=== PATIENT | male | born 1980 | race African-American/Black ===

== ENCOUNTER 2019-04-16 16:48 | Emergency (ER) | payer BC ==
[~2019-04-16] VITALS: Ht 177.8 cm; Wt 86.2 kg
[2019-04-16 16:53] VITALS: BP 147/80
--- NOTE | 2019-04-16 16:53 | NUR ---
ED Nurse Note: PT BROUGHT IN BY 61 FROM WORK DUE TO ALOC. PT'S BOSS IS AT THE BED SIDE AND REPORTS THAT PT WAS FOUND SITTING ON HIS DESK AND HEAD LAID BACK AND NOT RESPONDING WELL TO QUESTIONS ASKED TO HIM. PT CAME IN AAO X4, FOLLOWS COMMANDS WITH NON LABORED BREATHING. NOTED PT IS DROWSY AND WITH WEAKNESS. BS CHECK 94.
--- NOTE | 2019-04-16 16:59 | Emergency Room Report ---
History of Present Illness General Chief Complaint: Altered Mental Status Source: Patient Present Illness [facility] Disclaimer: Please note that this report is being documented using [employer] technology. This can lead to erroneous entry secondary to incorrect interpretation by the dictating instrument. HPI: 39-year-old male presents for evaluation of altered mental status/syncope. The patient was reportedly his usual state of health but was difficult to arouse while at work. His boss is with him and states that while his shift ended at 4:00 they went over and found him sleeping in his chair. He was difficult to arouse and was unresponsive to verbal and physical stimuli. He had sonorous respirations but no one reported any seizure-like activity, trauma or abnormal behavior prior to his discovery. EMS was called and patient was put on the ground. They found him arousable though confused. He has difficulty remembering his new address but cannot remember his old one. He denies any complaints of headache, visual changes, chest pain, palpitation, shortness of breath, cough, vomiting, diarrhea, drug use, alcohol use or any other changes in his health recently. He cannot recall whether or not he ate breakfast this morning. Does not have diabetes or any other medical history. Does not take any medications. Denies any prior history of similar events. PMH: Denies PSH: Denies Allergies: Denies Social Hx: Denies tobacco use, denies drug use. Occasional alcohol use Allergies: Coded Allergies: No Known Allergies (Unverified , 04/16/19) Nursing Documentation-PMH Past Medical History: No Stated History Review of Systems All Other Systems: negative except mentioned in HPI Physical Exam Vital Signs Date Time Temp Pulse Resp B/P (MAP) Pulse Ox O2 Delivery O2 Flow Rate FiO2 04/16/19 16:43 97.5 72 16 142/84 (103) 99 Room Air General: Awake and alert, no acute distress, somnolent but arousable to voice HEENT: NC/AT. There are no scalp or face hematomas, lacerations or abrasions. EOMI. visual shipley are full. No nystagmus. Pupils are 2 mm and faintly reactive bilaterally. Moist mucous membranes. Neck: Supple, trachea midline, no stiffness/rigidity Chest Wall: No tenderness, no deformity Cardiovascular: RRR. S1 and S2 normal. No murmur appreciated Resp: Normal work of breathing. No cough, wheezing or crackles appreciated Abdomen: Abdomen is soft, nondistended. Nontender Skin: Intact. No abrasions, laceration or rash over the exposed skin MSK: Normal tone and bulk. Moving all extremities. No obvious deformity. Neuro: Awake and alert. Mentating appropriately. Back/Spine: No midline tenderness in the cervical spine. Medical Decision Making Diagnostic Impression: Primary Impression: Altered level of consciousness ER Course 39-year-old male presents for evaluation of he was found difficult to arouse at his desk approximately 1 hour ago. He is now awake, alert and answering questions appropriately and has no complaints. He has some difficulty with short-term memory recall however appears to be improving. There is no seizure- like activity reported and the patient denies a history of seizures. Differential includes was not limited to infection, substance abuse, intoxication, seizure activity, electrolyte abnormality, arrhythmia. We will start broad metabolic, infectious, toxicologic and cardiac work-up. At this point, I do not see any evidence of trauma and there is no reported seizure- like activity while the patient was monitored. Do not believe he requires emergent head CT however if there is no other explanation for his altered mental status will order one after evaluation of labs. Laboratory Tests Test 04/16/19 17:15 04/16/19 17:30 White Blood Count 5.5 K/UL (4.8-10.8) Red Blood Count 4.49 M/UL (4.70-6.10) L Hemoglobin 12.2 G/DL (14.2-18.0) L Hematocrit 36.1 % (42.0-52.0) L Mean Corpuscular Volume 80 FL (80-99) Mean Corpuscular Hemoglobin 27.2 PG (27.0-31.0) Mean Corpuscular Hemoglobin Concent 33.9 G/DL (32.0-36.0) Red Cell Distribution Width 14.5 % (11.6-14.8) Platelet Count 236 K/UL (150-450) Mean Platelet Volume 6.3 FL (6.5-10.1) L Neutrophils (%) (Auto) % (45.0-75.0) Lymphocytes (%) (Auto) % (20.0-45.0) Monocytes (%) (Auto) % (1.0-10.0) Eosinophils (%) (Auto) % (0.0-3.0) Basophils (%) (Auto) % (0.0-2.0) Neutrophils % (Manual) Pending Lymphocytes % (Manual) Pending Platelet Estimate Pending Platelet Morphology Pending Sodium Level 137 MMOL/L (136-145) Potassium Level 3.4 MMOL/L (3.5-5.1) L Chloride Level 103 MMOL/L (98-107) Carbon Dioxide Level 31 MMOL/L (21-32) Anion Gap 3 mmol/L (5-15) L Blood Urea Nitrogen 10 mg/dL (7-18) Creatinine 1.0 MG/DL (0.55-1.30) Estimate Glomerular Filtration Rate > 60 mL/min (>60) Glucose Level 83 MG/DL (74-106) Calcium Level 8.4 MG/DL (8.5-10.1) L Total Bilirubin 0.4 MG/DL (0.2-1.0) Aspartate Amino Transferase (AST) 31 U/L (15-37) Alanine Aminotransferase (ALT) 29 U/L (12-78) Alkaline Phosphatase 126 U/L (46-116) H Total Protein 7.9 G/DL (6.4-8.2) Albumin 3.6 G/DL (3.4-5.0) Globulin 4.3 g/dL Albumin/Globulin Ratio 0.8 (1.0-2.7) L Salicylates Level 0.6 ug/mL (2.8-20) L Acetaminophen Level < 2 MCG/ML (10-30) L Serum Alcohol < 3 mg/dL Urine Color Yellow Urine Appearance Clear Urine pH 6 (4.5-8.0) Urine Specific [place] 1.025 (1.005-1.035) Urine Protein 1+ (NEGATIVE) H Urine Glucose (UA) Negative (NEGATIVE) Urine Ketones 1+ (NEGATIVE) H Urine Blood Negative (NEGATIVE) Urine Nitrite Negative (NEGATIVE) Urine Bilirubin Negative (NEGATIVE) Urine Urobilinogen 1 MG/DL (0.0-1.0) H Urine Leukocyte Esterase Negative (NEGATIVE) Urine RBC Pending Urine WBC Pending Urine Squamous Epithelial Cells Pending Urine Bacteria Pending Urine Opiates Screen Negative (NEGATIVE) Urine Barbiturates Screen Negative (NEGATIVE) Phencyclidine (PCP) Screen Negative (NEGATIVE) Urine Amphetamines Screen Positive (NEGATIVE) H Urine Benzodiazepines Screen Negative (NEGATIVE) Urine Cocaine Screen Negative (NEGATIVE) Urine Marijuana (THC) Screen Positive (NEGATIVE) H EKG Diagnostic Results EKG Time: 17:10 Rate: normal Rhythm: NSR ST Segments: no acute changes Other Impression Sinus rhythm, normal axis, normal intervals, no ST segment changes. Rhythm Strip Diag. Results Rhythm Strip Time: 17:10 EP Interpretation: yes Rate: 70s Rhythm: NSR, no PVC's, no ectopy Reevaluation Time: 18:07 Last Vital Signs Date Time Temp Pulse Resp B/P (MAP) Pulse Ox O2 Delivery O2 Flow Rate FiO2 04/16/19 16:43 97.5 72 16 142/84 (103) 99 Room Air Reevaluation Impression Labs have returned largely within normal limits. No evidence of significant white count, slight anemia with a hemoglobin of 12.12. Normal renal function and electrolytes. No evidence of urinary tract infection. The patient did test positive for amphetamines and THC which he admits to. He denies any opiate use denies using any drugs today. All he keeps saying that he feels tired no acute complaints. His memory is improving. This may represent a seizure and since the patient has no history we will obtain a CT scan to evaluate. 190 CT scan of the head was largely unremarkable aside from some nonspecific white matter changes. These can be followed up as an outpatient there is no evidence of bleed, mass or other abnormality. Patient was provided with a copy of his CT report. He is awake, alert, oriented and return to his neurologic baseline. May be excessive fatigue secondary to amphetamine use as he states he has not slept much over the past 2 days. He also did not eat any breakfast or lunch today. I counseled him on regular eating, abstaining from drugs, getting regular sleep and need to follow-up with his PMD. We also discussed reasons to return to the emergency department. He understands and agrees with this treatment plan and will be discharged home. Disposition: HOME, SELF-CARE Condition: Improved Greyson Wells MD Apr 16, 2019 16:59
[2019-04-16 17:28] LABS: HEMATOCRIT 36.1 % (42.0-52.0); HEMOGLOBIN 12.2 G/DL (14.2-18.0); MEAN CORPUSCULAR VOLUME 80 FL (80-99); PLATELET COUNT 236 K/UL (150-450); RED BLOOD COUNT 4.49 M/UL (4.70-6.10); RED CELL DISTRIBUTION WIDTH 14.5 % (11.6-14.8); WHITE BLOOD COUNT 5.5 K/UL (4.8-10.8)
[2019-04-16 17:49] LABS: ANION GAP 3 mmol/L (5-15); BLOOD UREA NITROGEN 10 mg/dL (7-18); CALCIUM 8.4 MG/DL (8.5-10.1); CARBON DIOXIDE 31 MMOL/L (21-32); CHLORIDE 103 MMOL/L (98-107); POTASSIUM 3.4 MMOL/L (3.5-5.1); SODIUM 137 MMOL/L (136-145)
[2019-04-16 17:49] LABS: APPEARANCE,URINE CLEAR; BILIRUBIN, URINE NEGATIVE (NEGATIVE); GLUCOSE, URINE (UA) NEGATIVE (NEGATIVE); KETONES,URINE 1+ (NEGATIVE); LEUKOCYTE ESTERASE ,URINE NEGATIVE (NEGATIVE); NITRITE,URINE NEGATIVE (NEGATIVE); PH,URINE 6 (4.5-8.0); PROTEIN,URINE 1+ (NEGATIVE); UROBILINOGEN,URINE 1 MG/DL (0.0-1.0)
[2019-04-16 17:51] LABS: COLOR,URINE YELLOW
[2019-04-16 17:54] LABS: ALANINE AMINOTRANSFERASE 29 U/L (12-78); ALBUMIN 3.6 G/DL (3.4-5.0); ALBUMIN/GLOBULIN RATIO 0.8 (1.0-2.7); ALKALINE PHOSPHATASE 126 U/L (46-116); ASPARTATE AMINO TRANSFERASE 31 U/L (15-37); BILIRUBIN,TOTAL 0.4 MG/DL (0.2-1.0)
--- NOTE | 2019-04-16 18:36 | Diagnostic Imaging Report ---
EXAM: CT Head Without Intravenous Contrast CLINICAL HISTORY: SYNCOPE TECHNIQUE: Axial computed tomography images of the head brain without intravenous contrast. CTDI is 60 mGy and DLP is 1364.2 mGy-cm. One or more of the following dose reduction techniques were used: automated exposure control, adjustment of the mA and or kV according to patient size, use of iterative reconstruction technique. COMPARISON: No relevant prior studies available. FINDINGS: Brain: No acute intracranial hemorrhage, cortical edema, or mass effect. No evidence for hydrocephalus. Subtle hypodensities in the right frontal subcortical white matter, nonspecific. Bones joints: Unremarkable. No acute fracture. Soft tissues: Unremarkable. Sinuses: Unremarkable as visualized. No acute sinusitis. Mastoid air cells: Unremarkable as visualized. No mastoid effusion. IMPRESSION: 1. No evidence for acute intracranial process. 2. Small subcortical white matter hypodensities which are nonspecific. Differential includes though not limited to chronic small vessel ischemia, demyelinating process, and chronic migraines.
--- NOTE | 2019-04-16 19:12 | NUR ---
HAND-OFF: Report given to DEJA GARCIA.
--- NOTE | 2019-04-16 19:13 | NUR ---
ED Nurse Note: Received report from Erna GARCIA. Pt alert and oriented, no SOB. VSS.
[2019-04-16 19:19] VITALS: BP 140/74
--- NOTE | 2019-04-16 19:19 | NUR ---
ED Nurse Note: Pt cleared by ERMD for discharge. DC instructions was given and explained to pt and verbalized understanding of teachings. All medical deviecs such as ID band and IV line removed. Pt is AAO x4, ambulatory and left with all personal belongings. Accompanied by family members.
== END 2019-04-16 19:19 | disposition home or self-care (01) ==
LOC: EDBD 16:48 → EMR 17:55
DX: R40.4 Transient alteration of awareness (principal); F15.90 Other stimulant use, unspecified, uncomplicated
CPT/HCPCS: 36415; 70450; 80053; 80307; 81003; 82962; 85007; 85025; 93005; 96360; 99284; G0480